=== PATIENT | male | born 1965 | race Caucasian/White ===

== ENCOUNTER 2022-07-07 10:18 | Inpatient (IN) | payer MEDICAID, OTHER ==
[~2022-07-07] VITALS: Ht 175.3 cm; Wt 85.5 kg
[2022-07-07] MEDS ORDERED: ASPIRIN 81MG TABLET PO ONE ×2 (11:00→13:00)
[2022-07-07 12:24] LABS: CHLORIDE 105 mEq/L (98-107)
[2022-07-07 12:37] LABS: BASOPHILS % 0.9 % (0.0-2.0); EOSINOPHILS % 2.5 % (0.0-5.0); HEMATOCRIT. 43.4 % (42.0-52.0); HEMOGLOBIN. 15.1 g/dL (14.0-18.0); LYMPHOCYTES % 22.9 % (20.0-50.0); MEAN CORPUSCULAR HEMOGLOBIN 31.6 pg (28.0-32.0); MEAN CORPUSCULAR VOLUME 90.5 fL (80.0-94.0); MONOCYTES % 4.8 % (2.0-8.0); NEUTROPHILS % 68.9 % (40.0-76.0); RED CELL DISTRIBUTION WIDTH 13.1 % (11.6-14.6)
[2022-07-07] MEDS ORDERED: NITROGLYCERIN OINT 1GM/INCH UDPKT TD SCH (13:00)
[2022-07-07] MEDS: NITROGLYCERIN OINT 1GM/INCH UDPKT TD ONE ×2 (13:11→13:29)
[2022-07-07 13:32] LABS: PLATELET 252 x1000/uL (130-400)
[2022-07-07] MEDS ORDERED: ONDANSETRON HCL 4MG/2ML INJ IV PRN (14:00)
[2022-07-07] MEDS ORDERED: ACETAMINOPHEN 325MG TABLET PO PRN (14:00)
[2022-07-07] MEDS ORDERED: MORPHINE SULFATE 4 MG/ML CPJ (NOT FOR IM USE) IV ONE (14:15)
[2022-07-07] MEDS ORDERED: ONDANSETRON HCL 4MG/2ML INJ IV ONE (14:15)
[2022-07-07] MEDS: NITROGLYCERIN OINT 1GM/INCH UDPKT TD SCH ×2 (14:32→21:24)
[2022-07-07] MEDS ORDERED: HEPARIN 5000 UNITS/ML VIAL IV ONE (14:45)
[2022-07-07] MEDS ORDERED: HEPARIN 25,000 UNITS PREMIX 250 ML IV ONE (14:45)
[2022-07-07] MEDS ORDERED: HEPARIN BOLUS PRN aPTT <30 IV (14:45)
[2022-07-07] MEDS ORDERED: HEPARIN 25,000 UNITS PREMIX 250 ML IV SCH (14:45)
[2022-07-07] MEDS ORDERED: HEPARIN BOLUS PRN aPTT 30-44 IV (14:45)
[2022-07-07] MEDS ORDERED: HEPARIN 60 UNITS/KG BOLUS IV SCH (14:45)
[2022-07-07] MEDS ORDERED: IOHEXOL-350 100 ML BOTTLE ONE (14:51)
[2022-07-07] MEDS ORDERED: ENOXAPARIN 100MG/ML SYR SUBCUT SCH (15:00)
[2022-07-07] MEDS ORDERED: MIDAZOLAM HCL 2 MG/2 ML VIAL ONE (15:03)
[2022-07-07] MEDS ORDERED: HEPARIN 1000 UNITS/ML 10ML ONE (15:03)
[2022-07-07] MEDS ORDERED: FENTANYL CITRATE/PF 50MCG/ML 2ML VIAL ONE (15:03)
[2022-07-07] MEDS ORDERED: IODIXANOL 320MG/ML 100 ML BOTTLE IV ONE ×2 (15:03→15:44)
[2022-07-07] MEDS ORDERED: VERAPAMIL HCL 2.5 MG/1 ML 2ML VIAL IV ONE (15:04)
[2022-07-07] MEDS ORDERED: LIDOCAINE HCL/PF 1% 10 MG/ML 5ML VIAL ONE (15:04)
[2022-07-07] MEDS ORDERED: DIPHENHYDRAMINE 50MG/ML VIAL ONE (15:09)
[2022-07-07] MEDS ORDERED: CLOPIDOGREL 75MG TABLET ONE (16:17)
[2022-07-07] MEDS ORDERED: ATROPINE SULFATE 1MG/10ML SYR IV PRN (16:45)
[2022-07-07 18:32] VITALS: BP 133/93
[2022-07-07 18:47] VITALS: BP 133/93
[2022-07-07 20:00] VITALS: BP 120/82
[2022-07-07] MEDS ORDERED: ATORVASTATIN CALCIUM 40MG TABLET PO SCH (21:00)
[2022-07-08] VITALS: BP 111/71
[2022-07-08 03:37] LABS: *AMPHETAMINES SCREEN URINE NEGATIVE (NEGATIVE); *BARBITURATES SCREEN URINE NEGATIVE (NEGATIVE); *BENZODIAZEPINES SCREEN URINE PRESUMTIVE POSITIVE (NEGATIVE); *COCAINE SCREEN URINE NEGATIVE (NEGATIVE); CANNABINOID URINE SCREEN NEGATIVE (NEGATIVE); METHADONE URINE SCREEN NEGATIVE (NEGATIVE); OPIATES URINE SCREEN PRESUMTIVE POSITIVE (NEGATIVE); PHENCYCLIDINE URINE SCREEN NEGATIVE (NEGATIVE)
[2022-07-08 04:00] VITALS: BP 108/71
[2022-07-08] MEDS: NITROGLYCERIN OINT 1GM/INCH UDPKT TD SCH (06:00)
[2022-07-08 06:30] LABS: BASOPHILS % 0.5 % (0.0-2.0); EOSINOPHILS % 1.7 % (0.0-5.0); HEMATOCRIT. 38.2 % (42.0-52.0); HEMOGLOBIN. 13.5 g/dL (14.0-18.0); LYMPHOCYTES % 21.9 % (20.0-50.0); MEAN CORPUSCULAR VOLUME 90.7 fL (80.0-94.0); MEAN PLATELET VOLUME 9.8 fl (7.4-10.4); MONOCYTES % 10.6 % (2.0-8.0); NEUTROPHILS % 65.3 % (40.0-76.0); PLATELET 212 x1000/uL (130-400); RED BLOOD CELL COUNT 4.21 mill/uL (4.7-6.1); RED CELL DISTRIBUTION WIDTH 13.2 % (11.6-14.6)
[2022-07-08 08:03] VITALS: BP 109/67
[2022-07-08] MEDS ORDERED: CLOPIDOGREL 75MG TABLET PO SCH (09:00)
[2022-07-08] MEDS ORDERED: ASPIRIN 325MG TABLET PO SCH (09:00)
[2022-07-08] MEDS ORDERED: ASPIRIN 81MG TABLET PO SCH (09:00)
[2022-07-08] MEDS ORDERED: CLOP75TA15 PO (09:45)
[2022-07-08] MEDS ORDERED: LIP40 PO (09:45)
[2022-07-08] MEDS ORDERED: ASPI-1160 PO (09:45)
[2022-07-08 10:14] VITALS: BP 109/67
[2022-07-08 13:03] LABS: CHLORIDE 103 mEq/L (98-107)
== END 2022-07-08 11:16 | disposition home or self-care (01) | DRG 174 ==
LOC: ER 10:18 → ORIP 13:38 → EDBEDREQ 13:39 → EDBEDREQTM 13:39 → 3WST 17:26
PROVIDERS: ADMIT Internal Medicine; ATTEND Internal Medicine
PROC: 4A023N7 Measurement of Cardiac Sampling and Pressure, Left Heart, Percutaneous Approach (ICD-10-PCS; principal; 2022-07-07)
PROC: 027035Z Dilation of Coronary Artery, One Artery with Two Drug-eluting Intraluminal Devices, Percutaneous Approach (ICD-10-PCS; 2022-07-07)
PROC: B2111ZZ Fluoroscopy of Multiple Coronary Arteries using Low Osmolar Contrast (ICD-10-PCS; 2022-07-07)
DX: I21.29 ST elevation (STEMI) myocardial infarction involving other sites (principal); E11.9 Type 2 diabetes mellitus without complications; E78.00 Pure hypercholesterolemia, unspecified; Z20.822 Contact with and (suspected) exposure to COVID-19; I25.10 Atherosclerotic heart disease of native coronary artery without angina pectoris; I10 Essential (primary) hypertension; F17.210 Nicotine dependence, cigarettes, uncomplicated; Z79.4 Long term (current) use of insulin
CPT/HCPCS: 36415; 71045; 71275; 74174; 80048; 80053; 80305; 82962; 83880; 84484; 85025; 85347; 85379; 87426; 92928; 93005; 93306; 93458; 99291; C1769; C1874; C1887; C1893; C9803; J1200; J1644; J2250; J2270; J2405; J3010; J3490; Q9967